=== PATIENT | female | born 1935 | race American Indian/Alaskan Native ===

== ENCOUNTER 2016-11-29 19:50 | Observation (INO) | payer OTHER ==
[2016-11-29 20:17] VITALS: BMI 32.0
[2016-11-29] MEDS ORDERED: ASPIRIN 81 MG CHEWABLE TABLETS PO ONE (20:23)
--- NOTE | 2016-11-29 20:23 | PDOC ---
History of Present Illness - General History Source: Patient, Family Exam Limitations: No Limitations - History of Present Illness Initial Comments: 11/29/16 21:00 The patient is a 81 year old female with a significant past medical history of rheumatoid arthritis, hyperlipidemia s/p stent who presents to the ED s/p altered mental status since yesterday. The patient reports she was in assisted living and went to rehab for back pain. She was discharged yesterday from the rehab center and family reports mental status change since then. The patient knows her name but is unable to describe symptoms. As per family, the patient is not mentally at baseline and has difficulty communicating. The patient also reports urinary frequency and a sudden onset of chest pain radiating to her left arm since earlier today. Patient also reports left forearm fracture for a month. Denies fevers or chills. Denies headache or syncope. Denies dizziness or lightheadedness. Denies shortness of breath or palpitations. Denies any other symptoms. <Tameka Heck - Last Filed: 11/29/16 22:19> - General History Source: Family <Jonah Onofre - Last Filed: 12/02/16 19:15> - General Chief Complaint: Chest Pain Stated Complaint: DISORIENTED/NOT EATING/LT HAND INURY Time Seen by Provider: 11/29/16 20:23 Past History <Tameka Heck - Last Filed: 11/29/16 22:19> - Past Medical History Cardiac Disorders: Yes Diabetes: Yes HTN: Yes Hypercholesterolemia: Yes - Surgical History Cardiac Surgery: Yes (stents) - Psycho/Social/Smoking Cessation Hx Suicidal Ideation: No Smoking History: Never smoked <Jonah Onofre - Last Filed: 12/02/16 19:15> - Past Medical History Allergies/Adverse Reactions: Allergies Allergy/AdvReac Type Severity Reaction Status Date / Time Penicillins Allergy Verified 11/29/16 21:04 Home Medications: Ambulatory Orders Adalimumab [Humira Pen] 40 mg SQ ASDIR 11/29/16 Aspirin [ASA -] 81 mg PO DAILY 11/29/16 Atorvastatin Ca [Lipitor] 80 mg PO HS 11/29/16 Baclofen 10 mg PO DAILY 11/29/16 Bisacodyl [Bisacodyl -] 5 mg PO BID 11/29/16 Clopidogrel Bisulfate [Plavix -] 75 mg PO DAILY 11/29/16 Cyanocobalamin [Vitamin B12 -] 1,000 mcg PO DAILY 11/29/16 Dextran 70/Hypromellose [Artificial Tears] 1 each OP DAILY 11/29/16 Docusate Sodium [Colace -] 200 mg PO DAILY 11/29/16 Folic Acid - 1 mg PO DAILY 11/29/16 Insulin Glargine,Hum.rec.anlog [Lantus Solostar PEN -] 10 units SQ HS 11/29/16 Insulin Lispro [Humalog Kwikpen U-100] 100 unit SQ QID 11/29/16 Lidocaine 5% Patch [Lidoderm -] 1 patch TP DAILY 11/29/16 Magnesium Hydrox 2400MG/30Ml [Milk of Magnesia -] 30 ml PO BID 11/29/16 Melatonin 3 mg PO HS 11/29/16 Metoprolol Succinate [Toprol XL -] 25 mg PO DAILY 11/29/16 Oxycodone HCl 10 mg PO QID PRN 11/29/16 Pantoprazole Sodium [Protonix -] 40 mg PO DAILY 11/29/16 Polyethylene Glycol 3350 [Miralax 119 gm Btl -] 17 gm PO DAILY 11/29/16 Pregabalin [Lyrica -] 75 mg PO TID 11/29/16 Sennosides [Senna] 2 tab PO HS 11/29/16 Simethicone [Gas-X] 125 mg PO QID 11/29/16 Losartan Potassium [Cozaar -] 100 mg PO DAILY tablet 12/01/16 Metoprolol Succinate [Toprol XL -] 25 mg PO BID #60 tab.sr.24h 12/01/16 Miscellaneous Medical Supply [Blood Pressure Cuff] 1 each MC BID #1 each NS 12/17 Review of Systems - Review of Systems Able to Perform ROS?: Yes Comments:: 11/29/16 21:00 CONSTITUTIONAL: No reported: Fever, Chills, Diaphoresis, Generalized Weakness, Malaise, Loss of Appetite HEENT: No reported: Rhinorrhea, Nasal Congestion, Throat Pain, Throat Swelling, Difficulty Swallowing, Mouth Swelling, Ear Pain, Eye Pain, Visual Changes CARDIOVASCULAR: + chest pain No reported: Syncope, Palpitations, Irregular Heart Rate, Lightheadedness, Peripheral Edema RESPIRATORY: No reported: Cough, Shortness of Breath, SOB with Exertion, Orthopnea, Wheezing , Stridor, Hemoptysis GASTROINTESTINAL: No reported: Abdominal pain, Abdominal Distension, Nausea, Vomiting, Diarrhea, Constipation, Melena, Hematochezia GENITOURINARY: + frequency No reported: Dysuria, Urgency, Hesitancy, Flank Pain, Genital Pain MUSCULOSKELETAL: + arm fracture No reported: Myalgia, Arthralgia, Joint Swelling, Back pain, Neck Pain SKIN: No reported: Rash, Itching, Pallor HEMEATOLOGIC/IMMUNOLOGIC: No reported: Easy Bleeding, Easy Bruising, Lymphadenopathy, Frequent infections ENDOCRINE: No reported: Unexplained Weight Gain, Unexplained Weight Loss, Heat Intolerance , Cold Intolerance NEUROLOGIC: + mental status change No reported: Headache, Focal Weakness, Paresthesias, Vertigo, Lightheadedness, Unsteady Gait, Seizure, Incontinence PSYCHIATRIC: No reported: Anxiety, Depression All Other Systems: Reviewed and Negative <Tameka Heck - Last Filed: 11/29/16 22:19> *Physical Exam - Vital Signs Last Vital Signs Temp Pulse Resp BP Pulse Ox 97.9 F 72 18 140/72 96 11/29/16 20:05 11/29/16 20:05 11/29/16 20:05 11/29/16 20:05 11/29/16 20:05 - Physical Exam Comments: 11/29/16 21:14 GENERAL: Well developed, well nourished. Awake and alert. No acute distress. HEENT: Normocephalic, atraumatic. PERRLA, EOMI. No conjunctival pallor. Sclera are non- icteric. Moist mucous membranes. Oropharynx is clear. NECK: Supple. Full ROM. No JVD. Carotid pulses 2+ and symmetric, without bruits. No thyromegaly. No lymphadenopathy. CARDIOVASCULAR: Regular rate and rhythm. No murmurs, rubs, or gallops. Distal pulses are 2+ and symmetric. PULMONARY: No evidence of respiratory distress. Lungs clear to auscultation bilaterally. No wheezing, rales or rhonchi. ABDOMINAL: + distended, tenderness in the right upper quadrant. Soft. No rebound or guarding. No organomegaly. Normoactive bowel sounds. MUSCULOSKELETAL Normal range of motion at all joints. No bony deformities or tenderness. No CVA tenderness. EXTREMITIES: No cyanosis. No clubbing. No edema. No calf tenderness. SKIN: Warm and dry. Normal capillary refill. No rashes. No jaundice. NEUROLOGICAL: + Alert and Oriented x 1, knows name but has difficulty describing symptoms. Cranial nerves 2-12 intact. No deficits to light touch and temperature in face, upper extremities and lower extremities. No motor deficits in the in face, upper extremities and lower extremities. Normoreflexic in the upper and lower extremities. Normal speech. Toes are down-going bilaterally. Gait is normal without ataxia. PSYCHIATRIC: Cooperative. Good eye contact. Appropriate mood and affect. <Tameka Heck - Last Filed: 11/29/16 22:19> - Vital Signs Last Vital Signs Temp Pulse Resp BP Pulse Ox 97.9 F 72 18 140/72 96 11/29/16 20:05 11/29/16 20:05 11/29/16 20:05 11/29/16 20:05 11/29/16 20:05 <Jonah Onofre - Last Filed: 12/02/16 19:15> Heart Score/ECG Review #1 11/29/16 21:06 Reviewed and interpreted by Dr. Onofre: Impression: Normal sinus rhythm at 71 bpm Possible anterior infarct, age undetermined IA interval 166 ms QRS duration 84 ms <Tameka Heck - Last Filed: 11/29/16 22:19> ED Treatment Course - LABORATORY CBC & Chemistry Diagram: 11/29/16 20:37 11/29/16 20:21 - RADIOLOGY Radiograph Interpretation: 11/29/16 22:19 CT/HEAD CT WITHOUT CONTRAST Impression: No CT evidence of acute intracranial pathology. Mild to moderate periventricular and subcortical chronic microvascular ischmic changes. 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 Reported by: Mickey Jaffe <Tameka Heck - Last Filed: 11/29/16 22:19> - LABORATORY CBC & Chemistry Diagram: 12/01/16 06:00 12/01/16 06:00 <Jonah Onofre - Last Filed: 12/02/16 19:15> Medical Decision Making - Medical Decision Making 12/02/16 19:15 Dr. Onofre: The scribe's documentation has been prepared under my direction and personally reviewed by me in its entirery. I confirm that the note above accurately reflects all work, treatment, procedures, and medical decision making performed by me. <Jonah Onofre - Last Filed: 12/02/16 19:15> *DC/Admit/Observation/Transfer - Attestations Scribe Attestion: 11/29/16 21:00 Documentation prepared by Tameka Heck, acting as medical delivery technician for Jonah Onofre MD <Tameka Heck - Last Filed: 11/29/16 22:19> - Discharge Dispostion Admit: Yes <Jonah Onofre - Last Filed: 12/02/16 19:15> Diagnosis at time of Disposition: Change in mental status Qualifiers: Altered mental status type: unspecified Qualified Code(s): R41.82 - Altered mental status, unspecified Chest pain Qualifiers: Chest pain type: other chest pain Qualified Code(s): R07.89 - Other chest pain - Discharge Dispostion Disposition: HOME Condition at time of disposition: Stable - Prescriptions
[2016-11-29 21:12] LABS: BASOPHIL 0.6 % (0-2.0); EOSINOPHIL 5.8 % (0-4.5); MCH 25.8 pg (25.7-33.7); MCHC 31.3 g/dl (32.0-36.0); MEAN CELL VOLUME 82.4 fl (80-96); MEAN PLT VOLUME 9.1 fl (7.5-11.1); NEUTROPHILS 65.6 % (42.8-82.8); PLATELET COUNT 250 K/MM3 (134-434); RDW 19.1 % (11.6-15.6); WHITE BLOOD COUNT 9.2 K/mm3 (4.0-10.0)
[2016-11-29 21:26] LABS: INR 1.02 (0.82-1.09); PROTHROMBIN TIME (PATIENT) 11.2 SEC (9.98-11.88)
[2016-11-30 00:26] LABS: ALBUMIN 3.1 g/dl (3.4-5.0); BILIRUBIN,TOTAL 0.5 mg/dL (0.2-1.0); CALCIUM 8.6 mg/dL (8.5-10.1); CREATININE 1.3 mg/dL (0.55-1.02); TOT PROT 6.8 g/dl (6.4-8.2)
[2016-11-30 01:16] LABS: TROPONIN I < 0.02 ng/ml (0.00-0.05)
[2016-11-30] MEDS ORDERED: INSULIN REGULAR HUMAN 100 UNITS/ML *VIAL SQ ONE (01:51)
[2016-11-30] MEDS ORDERED: SODIUM CHLORIDE 1,000 ML IV SCH ×3 (03:15→18:11)
--- NOTE | 2016-11-30 03:29 | HP ---
CHIEF COMPLAINT: Altered mental status PCP: none HISTORY OF PRESENT ILLNESS: This is an 81 year old female with a past medical history of RA, Hyperlipidemia , CAD s/p stent, DM, HTN who presents with altered mental status. Family reports that when they visited her at the rehab facility on Friday, she was fine, eager to be going home. On when they went to pick her up she was barely communicating with yes and no. They report when they got her home to her new apartment in [facility] she was confused, wheeling back and forth in the hallway, touching the stove as if she didn't know what it was. Family reports she has been fidgety, not eating, not sleeping. On Friday she had called her daughter on the telephone to make sure she had packed her clothing properly. Family very concerned about the sudden change in behavior and apparent mental status. They have not noticed any focal deficits. Pt with no acute complaints on exam. Does not engage in conversation, obeys commands but very reluctantly. Family denies any specific complaints on mothers part. ER course was notable for: (1) WBC 9.2 (2) CT head with no acute changes (3) Recent Travel: none PAST MEDICAL HISTORY: RA Hyperlipidemia CAD s/p stent DM HTN PAST SURGICAL HISTORY: left wrist fracture 1 month ago Social History: Smoking: no Alcohol: no Drugs: no Allergies Penicillins Allergy (Verified 11/29/16 21:04) HOME MEDICATIONS: 3 Medication Instructions Recorded Adalimumab [Humira] 40 mg SQ ASDIR 11/29/16 Aspirin [ASA -] 81 mg PO DAILY 11/29/16 Atorvastatin Ca [Lipitor] 80 mg PO HS 11/29/16 Baclofen 10 mg PO DAILY 11/29/16 Bisacodyl [Dulcolax -] 5 mg PO BID 11/29/16 Clopidogrel Bisulfate [Plavix -] 75 mg PO DAILY 11/29/16 Cyanocobalamin [Vitamin B12 -] 1,000 mcg PO DAILY 11/29/16 Dextran 70/Hypromellose 1 each OP DAILY 11/29/16 [Artificial Tears] Docusate Sodium [Colace -] 200 mg PO DAILY 11/29/16 Folic Acid - 1 mg PO DAILY 11/29/16 Insulin Glargine,Hum.rec.anlog 10 units SQ HS 11/29/16 [Lantus Solostar PEN (NF)] Insulin Lispro [Humalog] 100 unit SQ QID 11/29/16 Lidocaine 5% Patch [Lidoderm Patch 1 patch TP DAILY 11/29/16 -] Losartan/Hydrochlorothiazide 1 tab PO DAILY 11/29/16 [Losartan-Hctz 100-12.5 mg Tab] Magnesium Hydrox 2400MG/30Ml [Milk 30 ml PO BID 11/29/16 of Magnesia -] Melatonin 3 mg PO HS 11/29/16 Methotrexate Sodium [Methotrexate] 17.5 mg PO WEEKLY 11/29/16 Metoprolol Succinate [Toprol Xl -] 25 mg PO DAILY 11/29/16 Oxycodone HCl 10 mg PO QID PRN 11/29/16 Pantoprazole Sodium [Protonix -] 40 mg PO DAILY 11/29/16 Polyethylene Glycol 3350 [Miralax 17 gm PO DAILY 11/29/16 (For Daily Use) -] Pregabalin [Lyrica -] 75 mg PO TID 11/29/16 Sennosides [Senna] 2 tab PO HS 11/29/16 Simethicone [Gas-X] 125 mg PO QID 11/29/16 REVIEW OF SYSTEMS CONSTITUTIONAL: Present: loss of appetite Absent: fever, chills, diaphoresis, generalized weakness, malaise, weight change HEENT: Absent: rhinorrhea, nasal congestion, throat pain, throat swelling, difficulty swallowing, mouth swelling, ear pain, eye pain, visual changes CARDIOVASCULAR: Absent: chest pain, syncope, palpitations, irregular heart rate, lightheadedness , peripheral edema RESPIRATORY: Absent: cough, shortness of breath, dyspnea with exertion, orthopnea, wheezing, stridor, hemoptysis GASTROINTESTINAL: Absent: abdominal pain, abdominal distension, nausea, vomiting, diarrhea, constipation, melena, hematochezia GENITOURINARY: Absent: dysuria, frequency, urgency, hesitancy, hematuria, flank pain, genital pain MUSCULOSKELETAL: Absent: myalgia, arthralgia, joint swelling, back pain, neck pain SKIN: Absent: rash, itching, pallor HEMATOLOGIC/IMMUNOLOGIC: Absent: easy bleeding, easy bruising, lymphadenopathy, frequent infections ENDOCRINE: Absent: unexplained weight gain, unexplained weight loss, heat intolerance, cold intolerance NEUROLOGIC: Present: mental status changes Absent: headache, focal weakness or paresthesias, dizziness, unsteady gait, seizure, bladder or bowel incontinence PSYCHIATRIC: Absent: anxiety, depression, suicidal or homicidal ideation, hallucinations. PHYSICAL EXAMINATION Vital Signs - 24 hr 3 11/29/16 20:05 Temperature 97.9 F Pulse Rate 72 Respiratory 18 Rate Blood Pressure 140/72 O2 Sat by Pulse 96 Oximetry (%) GENERAL: Awake, alert, and oriented to person only. Whe asked where she was, she answered, "I can't really say." No acute distress. HEAD: Normal with no signs of trauma. EYES: Pupils equal, round and reactive to light, extraocular movements intact, sclera anicteric, conjunctiva clear. No lid lag. EARS, NOSE, THROAT: Ears normal, nares patent, oropharynx clear without exudates. Moist mucous membranes. NECK: Normal range of motion, supple without lymphadenopathy, JVD, or masses. LUNGS: Breath sounds equal, clear to auscultation bilaterally. No wheezes, and no crackles. No accessory muscle use. HEART: Regular rate and rhythm, normal S1 and S2 without murmur, rub or gallop. ABDOMEN: Soft, tender on deep palpation RUQ and RLQ, softly distended, normoactive bowel sounds, no guarding, no rebound, no masses. No hepatomegaly or splenomegaly. MUSCULOSKELETAL: Normal range of motion at all joints. No bony deformities or tenderness. No CVA tenderness. UPPER EXTREMITIES: 2+ pulses, warm, well-perfused. No cyanosis. No clubbing. Cap refill <2 seconds. No peripheral edema. B/L strength 4+/5 for hand alignment specialist and arm raise LOWER EXTREMITIES: 2+ pulses, warm, well-perfused. No calf tenderness. No peripheral edema. B/L strength 4+/5 for leg raise and dorsi/plantar flexion of foot NEUROLOGICAL: Cranial nerves II-XII intact. Normal speech. Gait not observed. Reluctantly follows commands. PSYCHIATRIC: Cooperative. Poor eye contact. difficult to engage SKIN: Warm, dry, normal turgor, no rashes or lesions noted. Laboratory Results - last 24 hr 3 11/29/16 11/29/16 11/29/16 11:22 11:22 20:21 WBC RBC Hgb Hct MCV MCHC RDW Plt Count MPV Neutrophils % Lymphocytes % Monocytes % Eosinophils % Basophils % INR 1.02 Sodium 136 Potassium 4.2 Chloride 97 L Carbon Dioxide 26 Anion Gap 13 BUN 33 H Creatinine 1.3 H Creat Clearance w eGFR 39.31 Random Glucose 338 H* Calcium 8.6 Magnesium Total Bilirubin 0.5 AST 18 ALT 23 Alkaline Phosphatase 218 H Creatine Kinase 83 Troponin I < 0.02 B-Natriuretic Peptide 876.08 H Total Protein 6.8 Albumin 3.1 L 3 11/29/16 11/29/16 20:21 20:37 WBC 9.2 RBC 4.57 Hgb 11.8 Hct 37.7 MCV 82.4 MCHC 31.3 L RDW 19.1 H Plt Count 250 MPV 9.1 Neutrophils % 65.6 Lymphocytes % 22.8 Monocytes % 5.2 Eosinophils % 5.8 H Basophils % 0.6 INR Sodium Cancelled Potassium Cancelled Chloride Cancelled Carbon Dioxide Cancelled Anion Gap Cancelled BUN Cancelled Creatinine Cancelled Creat Clearance w eGFR Cancelled Random Glucose Cancelled Calcium Cancelled Magnesium Cancelled Total Bilirubin Cancelled AST Cancelled ALT Cancelled Alkaline Phosphatase Cancelled Creatine Kinase Cancelled Troponin I Cancelled B-Natriuretic Peptide Total Protein Cancelled Albumin Cancelled CT/HEAD CT WITHOUT CONTRAST Impression: No CT evidence of acute intracranial pathology. Mild to moderate periventricular and subcortical chronic microvascular ischmic changes. 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 Reported by: Mickey Jaffe CXR appears congested, awaiting final read ASSESSMENT/PLAN: 81yF with a past medical history of RA, Hyperlipidemia, CAD s/p stent, DM, HTN who presents with altered mental status since . She is being admitted for further management of this emergent condition. Altered mental status - CT head with probable small chronic right posterior frontal cortical infarct, family denies any PMH of CVA - IF mental status does not improve, would obtain MRI and neuro consult - u/a c/s ordered via straight cath THOR - BUN/Cr 33/1.3, unsure of baseline, will give IV hydration NS@150cc/hr x 1 liter. DM - given novolog in ER for elevated sugar - on lantus 10 u QPM at home, will convert to formulary levemir - monitor FSBS TIDAC and HS with novolog sliding scale CAD s/p stent/HLD - cont home medications: toprol, losartan/HCTZ, plavix, ASA hyperlipidemia - cont home lipitor RA/chronic pain - cont home lyrica, hold oxycodone for now unless c/o pain - cont bowel regimen as family reports she was taking "a lot of opioids" - methotraxate q friday - humira q 2 weeks, next due 12/03 DVT PPX - heparin 5000u TID FEN - NS @150cc/hr x 1 liter then reassess - Repeat BMP in am - low sodium/diabetic diet as tolerated Dispo: Pt currently requires inpatient care. Full code. Visit type - Emergency Visit Emergency Visit: Yes ED Registration Date: 11/29/16 Care time: The patient presented to the Emergency Department on the above date and was hospitalized for further evaluation of their emergent condition. - New Patient This patient is new to me today: Yes Date on this admission: 11/30/16 - Critical Care Critical Care patient: No
[2016-11-30] MEDS ORDERED: INSULIN REGULAR HUMAN 100 UNITS/ML *VIAL ONE (03:30)
[2016-11-30] MEDS: HEPARIN NA (PORCINE) 5,000 UNITS/ML 1ML VIAL SQ SCH ×3 (05:59→22:16)
[2016-11-30] MEDS: PREGABALIN 75 MG CAPSULE PO SCH ×3 (05:59→22:17)
[2016-11-30] MEDS: INSULIN SLIDING SCALE (NOVOLOG) 1 VIAL SQ SCH ×4 (06:00→22:25)
[2016-11-30 08:45] LABS: BASOPHIL 0.6 % (0-2.0); EOSINOPHIL 5.1 % (0-4.5); MCH 26.6 pg (25.7-33.7); MCHC 32.5 g/dl (32.0-36.0); MEAN CELL VOLUME 81.9 fl (80-96); MEAN PLT VOLUME 8.9 fl (7.5-11.1); NEUTROPHILS 60.6 % (42.8-82.8); PLATELET COUNT 239 K/MM3 (134-434); RDW 18.8 % (11.6-15.6); WHITE BLOOD COUNT 9.1 K/mm3 (4.0-10.0)
[2016-11-30 09:07] LABS: CALCIUM 9.4 mg/dL (8.5-10.1); CREATININE 1.1 mg/dL (0.55-1.02)
[2016-11-30] MEDS ORDERED: PATIENT'S OWN MEDICATION (NON-FORMULARY) (Losartan/Hydrochlorothiazide [Losartan-Hctz 100- PO SCH (10:00)
[2016-11-30] MEDS ORDERED: METOPROLOL SUCCINATE 25 MG TAB.SR.24H (FP) PO SCH (10:00)
[2016-11-30] MEDS ORDERED: ARTIFICIAL TEARS (POLYVINYL ALCOHOL 1.4%) OPTH DROPS OU PRN (10:00)
[2016-11-30] MEDS: FOLIC ACID 1 MG TABLET (FP) PO SCH (10:21)
[2016-11-30] MEDS: PANTOPRAZOLE 40 MG TABLET (FP) PO SCH (10:21)
[2016-11-30] MEDS: LOSARTAN POTASSIUM 50 MG TABLET (FP) PO SCH (10:21)
[2016-11-30] MEDS: DOCUSATE SODIUM 100 MG CAPSULE (FP) PO SCH (10:21)
[2016-11-30] MEDS: HYDROCHLOROTHIAZIDE 12.5 MG CAPSULE (FP) PO SCH (10:21)
[2016-11-30] MEDS: CLOPIDOGREL BISULFATE 75 MG TABLET (FP) PO SCH (10:21)
[2016-11-30] MEDS: ASPIRIN 81 MG CHEWABLE TABLETS PO SCH (10:21)
[2016-11-30] MEDS: MAGNESIUM HYDROX 2400MG/30ML ORAL SUSPENSION 30 ML CUP PO SCH ×2 (10:26→22:17)
[2016-11-30] MEDS: BISACODYL 5 MG TABLET.DR (FP) PO SCH ×2 (10:26→22:16)
[2016-11-30] MEDS: POLYETHYLENE GLYCOL 3350 119 GM BTL PO SCH (10:26)
[2016-11-30] MEDS ORDERED: SIMETHICONE 80 MG TAB.CHEW (FP) PO PRN (11:00)
[2016-11-30 11:54] LABS: URINE APPEARANCE CLEAR; URINE BILIRUBIN NEGATIVE (NEGATIVE); URINE BLOOD NEGATIVE (NEGATIVE); URINE COLOR STRAW; URINE GLUCOSE (UA) NEGATIVE (NEGATIVE); URINE KETONE NEGATIVE (NEGATIVE); URINE NITRITE NEGATIVE (NEGATIVE); URINE UROBILINOGEN NEGATIVE E.U./dl (0.2-1.0)
[2016-11-30 12:01] LABS: URINE LEUK ESTERASE 1+ (NEGATIVE); URINE PROTEIN 2+ (NEGATIVE)
[2016-11-30 12:04] LABS: URINE WBC 7 /hpf (3-5)
--- NOTE | 2016-11-30 13:52 | EKG ---
Test Reason : Blood Pressure : / mmHG Vent. Rate : 071 BPM Atrial Rate : 071 BPM P-R Int : 166 ms QRS Dur : 084 ms QT Int : 368 ms P-R-T Axes : 066 -18 054 degrees QTc Int : 399 ms NORMAL SINUS RHYTHM ELECTRONIC ATRIAL PACEMAKER POSSIBLE ANTERIOR INFARCT , AGE UNDETERMINED ABNORMAL ECG NO PREVIOUS ECGS AVAILABLE Confirmed by MD MELIA, LAVELLE ([id number]) on 11/30/2016 1:51:37 PM Referred By: Overread By: LAVELLE CÁRDENAS MD
--- NOTE | 2016-11-30 14:44 | CONSULT ---
Consult Consult Specialty:: NEUROLOGY Reason for Consultation:: altered mental status - History of Present Illness History of Present Illness: 81 year old female with a past medical history of RA , pain ( on opioids treatment), Hyperlipidemia, CAD s/p stent, DM, HTN was admitted with altered mental status. Family reports that when they visited her at the rehab facility on Friday, she was fine, eager to be going home. On when they went to pick her up she was barely communicating with yes and no. They report when they got her home to her new apartment in [facility] she was confused, wheeling back and forth in the hallway, touching the stove as if she didn't know what it was. Family reports she has been fidgety, not eating, not sleeping. On Friday she had called her daughter on the telephone to make sure she had packed her clothing properly. Family very concerned about the sudden change in behavior and apparent mental status. They have not noticed any focal deficits. Does not engage in conversation, obeys commands but very reluctantly. - History Source History Provided By: Patient, Medical Record Limitations to Obtaining History: Poor Historian - Smoking History Smoking history: Never smoked Home Medications - Allergies Allergies/Adverse Reactions: Allergies Allergy/AdvReac Type Severity Reaction Status Date / Time Penicillins Allergy Verified 11/29/16 21:04 - Home Medications Home Medications: Ambulatory Orders Adalimumab [Humira] 40 mg SQ ASDIR 11/29/16 Aspirin [ASA -] 81 mg PO DAILY 11/29/16 Atorvastatin Ca [Lipitor] 80 mg PO HS 11/29/16 Baclofen 10 mg PO DAILY 11/29/16 Bisacodyl [Dulcolax -] 5 mg PO BID 11/29/16 Clopidogrel Bisulfate [Plavix -] 75 mg PO DAILY 11/29/16 Cyanocobalamin [Vitamin B12 -] 1,000 mcg PO DAILY 11/29/16 Dextran 70/Hypromellose [Artificial Tears] 1 each OP DAILY 11/29/16 Docusate Sodium [Colace -] 200 mg PO DAILY 11/29/16 Folic Acid - 1 mg PO DAILY 11/29/16 Insulin Glargine,Hum.rec.anlog [Lantus Solostar PEN (NF)] 10 units SQ HS Insulin Lispro [Humalog] 100 unit SQ QID 11/29/16 Lidocaine 5% Patch [Lidoderm Patch -] 1 patch TP DAILY 11/29/16 Losartan/Hydrochlorothiazide [Losartan-Hctz 100-12.5 mg Tab] 1 tab PO DAILY Magnesium Hydrox 2400MG/30Ml [Milk of Magnesia -] 30 ml PO BID 11/29/16 Melatonin 3 mg PO HS 11/29/16 Methotrexate Sodium [Methotrexate] 17.5 mg PO WEEKLY 11/29/16 Metoprolol Succinate [Toprol Xl -] 25 mg PO DAILY 11/29/16 Oxycodone HCl 10 mg PO QID PRN 11/29/16 Pantoprazole Sodium [Protonix -] 40 mg PO DAILY 11/29/16 Polyethylene Glycol 3350 [Miralax (For Daily Use) -] 17 gm PO DAILY 11/29/16 Pregabalin [Lyrica -] 75 mg PO TID 11/29/16 Sennosides [Senna] 2 tab PO HS 11/29/16 Simethicone [Gas-X] 125 mg PO QID 11/29/16 Physical Exam-Neuro Vital Signs: Vital Signs Temperature 97.6 F 11/30/16 14:00 Pulse Rate 91 H 11/30/16 14:00 Respiratory Rate 18 11/30/16 14:00 Blood Pressure 183/90 11/30/16 14:00 O2 Sat by Pulse Oximetry (%) 96 11/30/16 11:26 Constitutional: Yes: Well Nourished, No Distress, Calm Neck: Yes: Supple, Trachea Midline Cardiovascular: Yes: Regular Rate and Rhythm, S1, S2 Respiratory: Yes: Regular, CTA Bilaterally Gastrointestinal: Yes: Normal Bowel Sounds, Soft Renal/: Yes: WNL Musculoskeletal: Yes: WNL Edema: No Psychiatric: Yes: WNL, Alert, Oriented (to person only) Labs: CBC, BMP 11/30/16 08:10 11/30/16 08:10 INR, PTT INR 1.02 (0.82-1.09) 11/29/16 20:21 - Neuro Exam Level Of Consciousness: Yes: Oriented to Person Eyes: Yes: PERRLA Speech: Other (repetition is intact but there is severe decreased in fluency, follows intermittent one step commands.) Dominant Hand: Right Cranial Nerves II-XII Intact: Yes Gag: Present DTR's: 1+ Left Bicep, 1+ Right Bicep, 1+ Left Tricep, 1+ Right Tricep, 1+ Left Brachioradialis, 1+ Right Brachioradialis, 1+ Left Achilles, 1+ Right Achilles Babinski: Absent Response to light touch: Normal Response to pain prick: Normal Response to temperature: Normal Response to vibration: Normal Coordination: Normal: Finger to Nose, Heel to Damon Motor Strength: 5/5: Left Arm, Right Arm, Left Leg, Right Leg Gait: Deferred Problem List - Problems (1) Change in mental status Code(s): R41.82 - ALTERED MENTAL STATUS, UNSPECIFIED Qualifiers: Altered mental status type: unspecified Qualified Code(s): R41.82 - Altered mental status, unspecified (2) Aphasia Code(s): R47.01 - APHASIA (3) Acute metabolic encephalopathy Code(s): G93.41 - METABOLIC ENCEPHALOPATHY (4) Confusion Code(s): R41.0 - DISORIENTATION, UNSPECIFIED (5) Confusion associated with infection Code(s): R41.0 - DISORIENTATION, UNSPECIFIED B99.9 - UNSPECIFIED INFECTIOUS DISEASE Assessment/Plan 81 year old female with a past medical history of RA , pain ( on opioids treatment), Hyperlipidemia, CAD s/p stent, DM, HTN was admitted with altered mental status. Family reports that when they visited her at the rehab facility on Friday, she was fine, eager to be going home. On when they went to pick her up she was barely communicating with yes and no. They report when they got her home to her new apartment in [facility] she was confused, wheeling back and forth in the hallway, touching the stove as if she didn't know what it was. Family reports she has been fidgety, not eating, not sleeping. On Friday she had called her daughter on the telephone to make sure she had packed her clothing properly. Family very concerned about the sudden change in behavior and apparent mental status. They have not noticed any focal deficits. Neurological exam: no weakness but decreased fluency and confused. Repetition intract. CT head : no acute ICP She has hyperglycemia. Impression: aphasia due to stroke, confusions delirium versus dementia, possible partial seizures. metabolic encephalopathy Plan: - if there is no pmh. of dementia- to do MRI brain to rule out stroke acute ischemic with aphasia. - DVT prophylaxis. - Urine culture. - to do EEG to rule seizures. - correct electrolytes, correct glucose. Thank you for this consult.
[2016-11-30] MEDS: CYANOCOBALAMIN 1,000 MCG TABLET (FP) PO SCH (15:06)
--- NOTE | 2016-11-30 17:20 | PN ---
Physical Exam: SUBJECTIVE: Patient seen and examined, daughter at the bedside and provided most of the history. Patient awake, alert, slow to answer questions. States her names, says she is at [facility], cannot recall year. She denies chest pain when asked. She is in no acute distress. OBJECTIVE: Vital Signs Period Temp Pulse Resp BP Sys/Nava Pulse Ox Last 24 Hr 97.6 F-98.6 F 80-96 14-20 156-183/76-90 96-97 GENERAL: The patient is awake, alert to self, confused. HEAD: Normal with no signs of trauma. facial symmetry, EYES: PERRL, extraocular movements intact, sclera anicteric, conjunctiva clear. No ptosis. ENT: oropharynx clear without exudates, moist mucous membranes. NECK: Trachea midline, full range of motion, supple. LUNGS: Breath sounds equal, clear to auscultation bilaterally, no wheezes, no crackles, no accessory muscle use. HEART: Sinus rhythm, sinus tachycardia ABDOMEN: Soft, nontender, nondistended, normoactive bowel sounds EXTREMITIES: 2+ pulses, warm, well-perfused, no edema. bilateral lower ext equal strength, left arm cast, right arm 5/5 NEUROLOGICAL: Delayed speech, confused, gait not observed. PSYCH: confused. SKIN: left arm hard cast from wrist to forearm, able to move left fingers freely , denies pain. Arm cast for apx 1 month. Laboratory Results - last 24 hr 11/30/16 11/30/16 11/30/16 06:00 08:10 08:10 WBC 9.1 RBC 4.13 Hgb 11.0 Hct 33.8 MCV 81.9 MCHC 32.5 RDW 18.8 H Plt Count 239 MPV 8.9 Neutrophils % 60.6 Lymphocytes % 28.1 D Monocytes % 5.6 Eosinophils % 5.1 H Basophils % 0.6 Sodium 139 Potassium 3.8 Chloride 100 Carbon Dioxide 27 Anion Gap 12 BUN 27 H Creatinine 1.1 H POC Glucometer 195 Random Glucose 96 D Calcium 9.4 Triglycerides 50 Cholesterol 117 Total LDL Cholesterol 42 HDL Cholesterol 76 H Urine Color Urine Appearance Urine pH Ur Specific [place] Urine Protein Urine Glucose (UA) Urine Ketones Urine Blood Urine Nitrite Urine Bilirubin Urine Urobilinogen Ur Leukocyte Esterase Urine RBC Urine WBC 11/30/16 11/30/16 10:15 12:50 WBC RBC Hgb Hct MCV MCHC RDW Plt Count MPV Neutrophils % Lymphocytes % Monocytes % Eosinophils % Basophils % Sodium Potassium Chloride Carbon Dioxide Anion Gap BUN Creatinine POC Glucometer 171 Random Glucose Calcium Triglycerides Cholesterol Total LDL Cholesterol HDL Cholesterol Urine Color Straw Urine Appearance Clear Urine pH 7.0 Ur Specific [place] 1.008 Urine Protein 2+ H Urine Glucose (UA) Negative Urine Ketones Negative Urine Blood Negative Urine Nitrite Negative Urine Bilirubin Negative Urine Urobilinogen Negative Ur Leukocyte Esterase 1+ H Urine RBC None Urine WBC 7 Active Medications Generic Name Dose Route Start Last Admin Trade Name Freq PRN Reason Stop Dose Admin Artificial Tears 1 drop 11/30/16 10:00 Artificial Tears OU Q12H PRN Aspirin 81 mg 11/30/16 10:00 11/30/16 10:21 Asa - PO 81 mg DAILY [facility] Administration Atorvastatin Calcium 80 mg 11/30/16 22:00 Lipitor - PO HS [facility] Bisacodyl 5 mg 11/30/16 10:00 11/30/16 10:26 Dulcolax - PO Not Given BID [facility] Clopidogrel Bisulfate 75 mg 11/30/16 10:00 11/30/16 10:21 Plavix - PO 75 mg DAILY [facility] Administration Cyanocobalamin 1,000 mcg 11/30/16 10:00 11/30/16 15:06 Vitamin B12 - PO Not Given DAILY [facility] Docusate Sodium 200 mg 11/30/16 10:00 11/30/16 10:21 Colace - PO 200 mg DAILY [facility] Administration Folic Acid 1 mg 11/30/16 10:00 11/30/16 10:21 Folic Acid - PO 1 mg DAILY [facility] Administration Heparin Sodium (Porcine) 5,000 unit 11/30/16 06:00 11/30/16 15:06 Heparin - SQ 5,000 unit TID [facility] Administration Hydrochlorothiazide 12.5 mg 11/30/16 10:00 11/30/16 10:21 Hctz - PO 12.5 mg DAILY [facility] Administration Sodium Chloride 1,000 mls @ 100 mls/hr 11/30/16 10:15 11/30/16 10:15 Normal Saline - IV 100 mls/hr ASDIR [facility] Administration Insulin Aspart 1 vial 11/30/16 07:00 11/30/16 12:52 Novolog Vial Sliding Scale - SQ 2 units ACHS [facility] Administration Protocol Insulin Detemir 10 units 11/30/16 22:00 Levemir Vial SQ HS KEIRA Losartan Potassium 100 mg 11/30/16 10:00 11/30/16 10:21 Cozaar - PO 100 mg DAILY KEIRA Administration Magnesium Hydroxide 30 ml 11/30/16 10:00 11/30/16 10:26 Milk Of Magnesia - PO Not Given BID KEIRA Metoprolol Succinate 25 mg 11/30/16 10:00 11/30/16 10:22 Toprol Xl - PO 25 mg DAILY KEIRA Administration Pantoprazole Sodium 40 mg 11/30/16 10:00 11/30/16 10:21 Protonix - PO 40 mg DAILY KEIRA Administration Polyethylene Glycol 17 gm 11/30/16 10:00 11/30/16 10:26 Miralax (For Daily Use) - PO Not Given DAILY KEIRA Pregabalin 75 mg 11/30/16 06:00 11/30/16 15:06 Lyrica - PO 75 mg TID KEIRA Administration Senna 2 tab 11/30/16 22:00 Senna - PO HS KEIRA Simethicone 80 mg 11/30/16 11:00 11/30/16 15:06 Mylicon - PO 80 mg Q6H PRN Administration ASSESSMENT/PLAN: Patient is an 81 year old female with a past medical history of rheumatoid arthritis, hyperlipidemia, CAD with stents, diabetes mellitus and hypertension who was brought in by her family on 11/30/2016 for altered mental status. Daughter reports that when she visited her mother at the rehab facility on Friday, she appeared at her baseline mentally. She states her mother was alert and oriented and in no acute distres. On the following day, she noted her mother to be barely communicating, more confused. Later at home, she noted her mother to be more confused, touching the stove as if she did not know what it was, was more restless, not eating, poor sleep. Her daughter is very concerned about her mother and is wondering if her mother was given too much pain medication at the rehab facility. On my exam, it was noted that patient does not freely engage in conversation, looks confused and is able to state who she is but is reluctant to do so. Neurology: Alerted Mental Status - acute Assessment/Plan: Differentials include TIA vs. worsening dementia, seizures or infectious process. Patient still confused overnight and this morning. CT scan shows mild to moderate tori. and subcort. chronic microvascular ischemic changes. 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 MRI of the brain ordered. Neuro following, EEG to rule out seizures ordered as per Neuro recommendations On methotrexate every Friday for RA, Methotrexate adverse reactions include seizures, and opportunistic infections Blood cultures and urine cultures sent, pt is afebrile, non toxic appearing, monitor closely for worsening mental status, EEG ordered Checking urine tox as pt is on oxycodone at home. Hold Narcotics, will check ammonia level Ortho: Left forearm fracture s/p fall at home Assessment/Plan: left forearm fracture for a month, hard cast, able to move left fingers freely, denies pain. Cast scheduled to be removed this week. Cardiology: Chest Pain - acute Assessment/Plan: Admitted with chest pain, denies any chest pain or shortness of breath. First troponin negative, second troponin ordered. Hypertension - chronic Assessment/Plan: On home medications of HCTZ 12.5 daily, Toprol 25mg daily ( changed to Toprol 25mg BID secondary to HTN). Monitor BPs. Telemonitoring. Hyperlipidemia - chonic Assessment/Plan: cont home lipitor CAD s/p stent/HLD - chronic Assessment/Plan: On home medications of Toprol, HCTZ, Plavix and ASA Endocrine: Diabetes Mellitus - chronic Assessment/Plan: Monitor BGMs closely and may need tighter control of insulin therapy last BGM in the 90s, continue current sliding scale and monitor F.E.N. Fluids: NS @ 100cc for dehydration Electrolytes: within normal limits, monitor Nutrition:Diabetic diet, not signs of aspiration Prophylaxis: heparin TID GI: Protonix, colace, senna Visit type - Emergency Visit Emergency Visit: Yes ED Registration Date: 11/30/16 Care time: The patient presented to the Emergency Department on the above date and was hospitalized for further evaluation of their emergent condition. - New Patient This patient is new to me today: Yes Date on this admission: 12/01/16 - Critical Care Critical Care patient: No - Discharge Referral Referred to [facility] Med P.C.: Yes
[2016-11-30] MEDS ORDERED: METOPROLOL SUCCINATE 25 MG TAB.SR.24H (FP) PO ONE (18:10)
[2016-11-30] MEDS ORDERED: SENNOSIDES 8.6MG TABLET (FP) PO SCH (22:00)
[2016-11-30] MEDS ORDERED: ATORVASTATIN CA 80 MG TABLET (FP) PO SCH (22:00)
[2016-11-30] MEDS ORDERED: INSULIN DETEMIR 100 UNITS/ML MDV SQ SCH ×2 (22:00)
[2016-11-30] MEDS: METOPROLOL SUCCINATE 25 MG TAB.SR.24H (FP) PO SCH (22:17)
[2016-12-01] MEDS: HEPARIN NA (PORCINE) 5,000 UNITS/ML 1ML VIAL SQ SCH ×2 (06:50→13:58)
[2016-12-01] MEDS: PREGABALIN 75 MG CAPSULE PO SCH ×2 (06:50→13:58)
[2016-12-01] MEDS: INSULIN SLIDING SCALE (NOVOLOG) 1 VIAL SQ SCH ×3 (06:50→17:17)
[2016-12-01 07:21] LABS: BASOPHIL 0.4 % (0-2.0); EOSINOPHIL 6.1 % (0-4.5); MCH 26.7 pg (25.7-33.7); MCHC 32.4 g/dl (32.0-36.0); MEAN CELL VOLUME 82.4 fl (80-96); MEAN PLT VOLUME 8.9 fl (7.5-11.1); NEUTROPHILS 56.6 % (42.8-82.8); PLATELET COUNT 198 K/MM3 (134-434); RDW 19.2 % (11.6-15.6); WHITE BLOOD COUNT 8.1 K/mm3 (4.0-10.0)
[2016-12-01 07:41] LABS: ALBUMIN 2.8 g/dl (3.4-5.0); CALCIUM 8.2 mg/dL (8.5-10.1); CREATININE 1.2 mg/dL (0.55-1.02); MAGNESIUM 1.9 mg/dL (1.8-2.4)
[2016-12-01 07:45] LABS: BILIRUBIN,TOTAL 0.5 mg/dL (0.2-1.0); TOT PROT 6.4 g/dl (6.4-8.2)
[2016-12-01] MEDS ORDERED: SODIUM CHLORIDE 1,000 ML IV SCH (07:55)
[2016-12-01] MEDS: BISACODYL 5 MG TABLET.DR (FP) PO SCH (09:50)
[2016-12-01] MEDS: ASPIRIN 81 MG CHEWABLE TABLETS PO SCH (09:51)
[2016-12-01] MEDS: HYDROCHLOROTHIAZIDE 12.5 MG CAPSULE (FP) PO SCH (09:51)
[2016-12-01] MEDS: CYANOCOBALAMIN 1,000 MCG TABLET (FP) PO SCH (09:51)
[2016-12-01] MEDS: FOLIC ACID 1 MG TABLET (FP) PO SCH (09:51)
[2016-12-01] MEDS: PANTOPRAZOLE 40 MG TABLET (FP) PO SCH (09:51)
[2016-12-01] MEDS: CLOPIDOGREL BISULFATE 75 MG TABLET (FP) PO SCH (09:51)
[2016-12-01] MEDS: METOPROLOL SUCCINATE 25 MG TAB.SR.24H (FP) PO SCH (09:51)
[2016-12-01] MEDS: DOCUSATE SODIUM 100 MG CAPSULE (FP) PO SCH (09:51)
[2016-12-01] MEDS: LOSARTAN POTASSIUM 50 MG TABLET (FP) PO SCH (09:51)
[2016-12-01] MEDS: MAGNESIUM HYDROX 2400MG/30ML ORAL SUSPENSION 30 ML CUP PO SCH (09:52)
[2016-12-01] MEDS: POLYETHYLENE GLYCOL 3350 119 GM BTL PO SCH (09:52)
--- NOTE | 2016-12-01 11:51 | DS ---
Physical Exam: SUBJECTIVE: Patient seen and examined. Patient was sitting up in the chair, in no acute distress. Today she more alert and answering questions appropriately. Alert and oriented x 3. States she feels better. As per her family, patient is back to her baseline mentally. OBJECTIVE: Vital Signs Period Temp Pulse Resp BP Sys/Nava Pulse Ox Last 24 Hr 97.2 F-98.8 F 57-91 18-20 115-183/60-97 97-97 PHYSICAL EXAM GENERAL: The patient is awake, alert, and fully oriented, in no acute distress - much improved since yesterday. Back to her baseline mentally as per her family. HEAD: Normal with no signs of trauma, no aphagia, no confusion, back to baseline , facial symmetry EYES: PERRL, extraocular movements intact, sclera anicteric, conjunctiva clear. ENT: Ears normal, nares patent, oropharynx clear without exudates, moist mucous membranes. NECK: Trachea midline, full range of motion, supple. LUNGS: Breath sounds equal, clear to auscultation bilaterally, no wheezes HEART: Regular rate and rhythm ABDOMEN: Soft, nontender, nondistended, normoactive bowel sounds, no guarding EXTREMITIES: 2+ pulses, warm, well-perfused, no edema, equal strength of legs, right arm 5/5, left arm cast, minimal movement, fingers warm. NEUROLOGICAL: Normal speech, uses rolling walker PSYCH: Normal mood, normal affect - answers questions appropriately SKIN: Warm, dry, normal turgor, no rashes or lesions noted. LABS Laboratory Results - last 24 hr 11/30/16 11/30/16 11/30/16 08:10 10:15 12:50 WBC RBC Hgb Hct MCV MCHC RDW Plt Count MPV Neutrophils % Lymphocytes % Monocytes % Eosinophils % Basophils % Sodium Potassium Chloride Carbon Dioxide Anion Gap BUN Creatinine Creat Clearance w eGFR POC Glucometer 171 Random Glucose Calcium Magnesium Total Bilirubin AST ALT Alkaline Phosphatase Ammonia Troponin I B-Natriuretic Peptide Total Protein Albumin Triglycerides 50 Cholesterol 117 Total LDL Cholesterol 42 HDL Cholesterol 76 H Urine Color Straw Urine Appearance Clear Urine pH 7.0 Ur Specific [place] 1.008 Urine Protein 2+ H Urine Glucose (UA) Negative Urine Ketones Negative Urine Blood Negative Urine Nitrite Negative Urine Bilirubin Negative Urine Urobilinogen Negative Ur Leukocyte Esterase 1+ H Urine RBC None Urine WBC 7 11/30/16 11/30/16 11/30/16 18:00 18:04 18:30 WBC RBC Hgb Hct MCV MCHC RDW Plt Count MPV Neutrophils % Lymphocytes % Monocytes % Eosinophils % Basophils % Sodium Potassium Chloride Carbon Dioxide Anion Gap BUN Creatinine Creat Clearance w eGFR POC Glucometer 165 Random Glucose Calcium Magnesium Total Bilirubin AST ALT Alkaline Phosphatase Ammonia 16.10 Troponin I < 0.02 B-Natriuretic Peptide Total Protein Albumin Triglycerides Cholesterol Total LDL Cholesterol HDL Cholesterol Urine Color Urine Appearance Urine pH Ur Specific [place] Urine Protein Urine Glucose (UA) Urine Ketones Urine Blood Urine Nitrite Urine Bilirubin Urine Urobilinogen Ur Leukocyte Esterase Urine RBC Urine WBC 11/30/16 12/01/16 12/01/16 22:21 06:00 06:00 WBC 8.1 RBC 3.87 Hgb 10.3 L Hct 31.9 L MCV 82.4 MCHC 32.4 RDW 19.2 H Plt Count 198 MPV 8.9 Neutrophils % 56.6 Lymphocytes % 28.3 Monocytes % 8.6 Eosinophils % 6.1 H Basophils % 0.4 Sodium 139 Potassium 3.5 Chloride 107 Carbon Dioxide 25 Anion Gap 7 L BUN 33 H D Creatinine 1.2 H Creat Clearance w eGFR 43.12 POC Glucometer 204 Random Glucose 60 L D Calcium 8.2 L Magnesium 1.9 Total Bilirubin 0.5 AST 14 L D ALT 21 Alkaline Phosphatase 187 H Ammonia Troponin I B-Natriuretic Peptide 477.08 H Total Protein 6.4 Albumin 2.8 L Triglycerides Cholesterol Total LDL Cholesterol HDL Cholesterol Urine Color Urine Appearance Urine pH Ur Specific [place] Urine Protein Urine Glucose (UA) Urine Ketones Urine Blood Urine Nitrite Urine Bilirubin Urine Urobilinogen Ur Leukocyte Esterase Urine RBC Urine WBC 12/01/16 12/01/16 06:43 09:00 WBC RBC Hgb Hct MCV MCHC RDW Plt Count MPV Neutrophils % Lymphocytes % Monocytes % Eosinophils % Basophils % Sodium Potassium Chloride Carbon Dioxide Anion Gap BUN Creatinine Creat Clearance w eGFR POC Glucometer 71 Random Glucose Calcium Magnesium Total Bilirubin AST ALT Alkaline Phosphatase Ammonia Troponin I < 0.02 B-Natriuretic Peptide Total Protein Albumin Triglycerides Cholesterol Total LDL Cholesterol HDL Cholesterol Urine Color Urine Appearance Urine pH Ur Specific [place] Urine Protein Urine Glucose (UA) Urine Ketones Urine Blood Urine Nitrite Urine Bilirubin Urine Urobilinogen Ur Leukocyte Esterase Urine RBC Urine WBC HOSPITAL COURSE: Date of Admission:11/30/16 Date of Discharge: 01/01/17 Patient is an 81 year old female with a past medical history of rheumatoid arthritis, hyperlipidemia, CAD with stents, diabetes mellitus and hypertension who was brought in by her family on 11/30/2016 for altered mental status. Daughter reports that when she visited her mother at the rehab facility on Friday, she appeared at her baseline mentally. She states her mother was alert and oriented and in no acute distres. On the following day, she noted her mother to be barely communicating, more confused. Later at home, she noted her mother to be more confused, touching the stove as if she did not know what it was, was more restless, not eating, poor sleep. Her daughter is very concerned about her mother and is wondering if her mother was given too much pain medication at the rehab facility. On today's exam, patient is awake, alert, communicating without hesitancy. She is alert to self, year, place. In no acute distress. Much improved since yesterday. As per family, patient is back to her baseline. CT Scan:CT scan shows mild to moderate tori. and subcort. chronic microvascular ischemic changes. 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 MRI of brain: no acute infarct, mild to moderate periventicular and subcortoid chronic microvascular changes. Neurology: Alerted Mental Status - resolved, pt back to her baseline Assessment/Plan: Differentials include TIA vs. dementia, seizures or infectious process. She will get an EEG as an outpatient and follow up with a neurologist Blood cultures and urine cultures preliminary reading with no growth to date Ammonia levels normal On methotrexate every Friday for RA, Methotrexate adverse reactions include seizures, and opportunistic infections, daughter to follow up with Metal Wire Technician and discuss need for this medication Hold Narcotics, treat pain with OTC medication. Ortho: Left forearm fracture s/p fall at home - chronic Assessment/Plan: left forearm fracture for a month, hard cast, able to move left fingers freely, denies pain. Cast scheduled to be removed tomorrow. Encouraged daughter to keep appointment with Orthopedic in [place]. Cardiology: Chest Pain - resolved Assessment/Plan: Admitted with chest pain, denies any chest pain or shortness of breath. Troponin negative x 3, will follow up with meat counter worker as outpatient Hypertension - controlled/chronic condition Assessment/Plan: On home medications of HCTZ 12.5 daily, Toprol 25mg daily ( changed to Toprol 25mg BID secondary to HTN). Monitor BPs. Telemonitoring. Hold HCTZ secondary to dehydration until seen by PCP Hyperlipidemia - chonic Assessment/Plan: cont home lipitor PCP in [place], patient is moving to [place] to be closer to her daughter. Daughter asking for PCP referrals. Minutes to complete discharge: 45 Discharge Summary Reason For Visit: CHEST PAIN Current Active Problems Acute metabolic encephalopathy (Acute) Aphasia (Acute) Change in mental status (Acute) Chest pain (Acute) Confusion (Acute) Confusion associated with infection (Acute) Condition: Stable - Instructions Diet, Activity, Other Instructions: Please continue to hydrate with at least 6 - 8 glasses of water per day. Hold the HCTZ medication because of dehydration until you speak with your PCP. Please return to the ER if you experience any of the following: Confusion or any mental status changes. Please call Dr. Tabares's office, let them know you were seen at the hospital. You will need an EEG as an outpatient. Referrals: Alex Padilla MD [Staff Physician] - Genet Bailey MD [Staff Physician] - Jw Bazan MD [Staff Physician] - Karin Tabares MD [Staff Physician] - Disposition: HOME - Home Medications Comprehensive Discharge Medication List: Ambulatory Orders Adalimumab [Humira] 40 mg SQ ASDIR 11/29/16 Aspirin [ASA -] 81 mg PO DAILY 11/29/16 Atorvastatin Ca [Lipitor] 80 mg PO HS 11/29/16 Baclofen 10 mg PO DAILY 11/29/16 Bisacodyl [Dulcolax -] 5 mg PO BID 11/29/16 Clopidogrel Bisulfate [Plavix -] 75 mg PO DAILY 11/29/16 Cyanocobalamin [Vitamin B12 -] 1,000 mcg PO DAILY 11/29/16 Dextran 70/Hypromellose [Artificial Tears] 1 each OP DAILY 11/29/16 Docusate Sodium [Colace -] 200 mg PO DAILY 11/29/16 Folic Acid - 1 mg PO DAILY 11/29/16 Insulin Glargine,Hum.rec.anlog [Lantus Solostar PEN (NF)] 10 units SQ HS Insulin Lispro [Humalog] 100 unit SQ QID 11/29/16 Lidocaine 5% Patch [Lidoderm Patch -] 1 patch TP DAILY 11/29/16 Losartan/Hydrochlorothiazide [Losartan-Hctz 100-12.5 mg Tab] 1 tab PO DAILY Magnesium Hydrox 2400MG/30Ml [Milk of Magnesia -] 30 ml PO BID 11/29/16 Melatonin 3 mg PO HS 11/29/16 Methotrexate Sodium [Methotrexate] 17.5 mg PO WEEKLY 11/29/16 Metoprolol Succinate [Toprol Xl -] 25 mg PO DAILY 11/29/16 Oxycodone HCl 10 mg PO QID PRN 11/29/16 Pantoprazole Sodium [Protonix -] 40 mg PO DAILY 11/29/16 Polyethylene Glycol 3350 [Miralax (For Daily Use) -] 17 gm PO DAILY 11/29/16 Pregabalin [Lyrica -] 75 mg PO TID 11/29/16 Sennosides [Senna] 2 tab PO HS 11/29/16 Simethicone [Gas-X] 125 mg PO QID 11/29/16 This patient is new to me today: No Emergency Visit: Yes ED Registration Date: 11/30/16 Care time: The patient presented to the Emergency Department on the above date and was hospitalized for further evaluation of their emergent condition. Critical Care patient: No Total Critical Care Time (in minutes): 0 - Discharge Referral Referred to [facility] Med P.C.: Yes Physician Referral: Alex Branch MD ([facility])
[2016-12-01 15:39] VITALS: BP 134/60; PULSE 78; TEMP 98
--- NOTE | 2016-12-01 18:14 | CONSULT ---
Consult Consult Specialty:: Cardiology Referred by:: Hospitalist Reason for Consultation:: Cardiac evaluation - History of Present Illness Chief Complaint: Altered mental status History of Present Illness: Patient is an 81 year old female with underlying history of RA, CAD s/p PCI/ stent, type 2 DM, HTN and hypercholesterolemia who presented to [facility] with altered mental status. She had been living in assisted living facility went to rehab for back pain. SHe reported urinary frequency and chest discomfort radiation to left arm. She denies shortness of breath or palpitations. She has left forearm fracture for a month and currently has a cast. She is currently awake and alert. She denies paroxysmal nocturnal dyspnea or orthopnea. She denies fever or chills. She denies headache or lightheadedness. 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 Brain MRI was obtained. ) - History Source History Provided By: Patient, Family Member, Medical Record Limitations to Obtaining History: No Limitations - Past Medical History Cardio/Vascular: Yes: CAD, HTN, Hyperlipdemia Rheumatology: Yes: Rheumatoid Arthritis Endocrine: Yes: Diabetes Mellitus - Past Surgical History Additional Surgical History: Left forearm cast due to fracture - Alcohol/Substance Use Hx Alcohol Use: No History of Substance Use: reports: None - Smoking History Smoking history: Never smoked Home Medications - Allergies Allergies/Adverse Reactions: Allergies Allergy/AdvReac Type Severity Reaction Status Date / Time Penicillins Allergy Verified 11/29/16 21:04 - Home Medications Home Medications: Ambulatory Orders Adalimumab [Humira Pen] 40 mg SQ ASDIR 11/29/16 Aspirin [ASA -] 81 mg PO DAILY 11/29/16 Atorvastatin Ca [Lipitor] 80 mg PO HS 11/29/16 Baclofen 10 mg PO DAILY 11/29/16 Bisacodyl [Bisacodyl -] 5 mg PO BID 11/29/16 Clopidogrel Bisulfate [Plavix -] 75 mg PO DAILY 11/29/16 Cyanocobalamin [Vitamin B12 -] 1,000 mcg PO DAILY 11/29/16 Dextran 70/Hypromellose [Artificial Tears] 1 each OP DAILY 11/29/16 Docusate Sodium [Colace -] 200 mg PO DAILY 11/29/16 Folic Acid - 1 mg PO DAILY 11/29/16 Insulin Glargine,Hum.rec.anlog [Lantus Solostar PEN -] 10 units SQ HS 11/29/16 Insulin Lispro [Humalog Kwikpen U-100] 100 unit SQ QID 11/29/16 Lidocaine 5% Patch [Lidoderm -] 1 patch TP DAILY 11/29/16 Magnesium Hydrox 2400MG/30Ml [Milk of Magnesia -] 30 ml PO BID 11/29/16 Melatonin 3 mg PO HS 11/29/16 Metoprolol Succinate [Toprol XL -] 25 mg PO DAILY 11/29/16 Oxycodone HCl 10 mg PO QID PRN 11/29/16 Pantoprazole Sodium [Protonix -] 40 mg PO DAILY 11/29/16 Polyethylene Glycol 3350 [Miralax 119 gm Btl -] 17 gm PO DAILY 11/29/16 Pregabalin [Lyrica -] 75 mg PO TID 11/29/16 Sennosides [Senna] 2 tab PO HS 11/29/16 Simethicone [Gas-X] 125 mg PO QID 11/29/16 Losartan Potassium [Cozaar -] 100 mg PO DAILY tablet 12/01/16 Metoprolol Succinate [Toprol XL -] 25 mg PO BID #60 tab.sr.24h 12/01/16 Miscellaneous Medical Supply [Blood Pressure Cuff] 1 each MC BID #1 each NS 12/17 Review of Systems - Review of Systems Constitutional: denies: Chills, Fever Cardiovascular: denies: Chest Pain, Palpitations, Shortness of Breath Respiratory: denies: Cough, Hemoptysis, Orthopnea, PND Gastrointestinal: denies: Abdominal Pain, Constipation, Melena, Nausea, Rectal Bleeding, Vomiting Musculoskeletal: reports: Joint Pain Neurological: reports: Syncope. denies: Dizziness, Headache, Seizure Vital Signs: Vital Signs Temperature 98.0 F 12/01/16 15:36 Pulse Rate 78 12/01/16 15:36 Respiratory Rate 20 12/01/16 15:36 Blood Pressure 134/60 12/01/16 15:36 O2 Sat by Pulse Oximetry (%) 99 12/01/16 08:00 Neck: Yes: Supple Respiratory: Yes: Diminished Gastrointestinal: Yes: Normal Bowel Sounds, Soft. No: Tenderness Cardiovascular: Yes: Regular Rate and Rhythm JVD: No Carotid Bruit: No PMI: Non-Displaced Heart Sounds: Yes: S1, S2 Edema: No - Other Data Labs, Other Data: CBC, BMP 12/01/16 06:00 12/01/16 06:00 INR, PTT INR 1.02 (0.82-1.09) 11/29/16 20:21 Troponin, BNP 11/30/16 12/01/16 12/01/16 18:00 06:00 09:00 Troponin I < 0.02 < 0.02 B-Natriuretic Peptide 477.08 H Probable sinus rhythm Problem List - Problems (1) Acute metabolic encephalopathy Code(s): G93.41 - METABOLIC ENCEPHALOPATHY (2) Aphasia Code(s): R47.01 - APHASIA (3) Change in mental status Code(s): R41.82 - ALTERED MENTAL STATUS, UNSPECIFIED Qualifiers: Altered mental status type: unspecified Qualified Code(s): R41.82 - Altered mental status, unspecified (4) CAD (coronary artery disease) Code(s): I25.10 - ATHSCL HEART DISEASE OF [place] CORONARY ARTERY W/O ANG PCTRS Qualifiers: Coronary Disease-Associated Artery/Lesion type: [place] artery [place] vs. transplanted heart: [place] heart Associated angina: without angina Qualified Code(s): I25.10 - Atherosclerotic heart disease of [place] coronary artery without angina pectoris (5) Percutaneous transluminal coronary angioplasty (PTCA) within last 14 to 24 months Code(s): Z98.61 - CORONARY ANGIOPLASTY STATUS (6) Diabetes mellitus Code(s): E11.9 - TYPE 2 DIABETES MELLITUS WITHOUT COMPLICATIONS Qualifiers: Diabetes mellitus type: type 2 Diabetes mellitus complication status: without complication Diabetes mellitus long-term insulin use: without long-term use Qualified Code(s): E11.9 - Type 2 diabetes mellitus without complications (7) HTN (hypertension) Code(s): I10 - ESSENTIAL (PRIMARY) HYPERTENSION Qualifiers: Hypertension type: essential hypertension Qualified Code(s): I10 - Essential (primary) hypertension (8) Hypercholesterolemia Code(s): E78.0 - PURE HYPERCHOLESTEROLEMIA * DO NOT USE * Assessment/Plan 1. Altered mental status - ? stroke 2. HTN 3. Hypercholesterolemia 4. Type 2 DM 5. CAD s/p PCI/stent, angina pectoris 6. Rheumatoid Arthritis PLAN: 1. Continue Metoprolol, Cozaar and HCTZ 2. Continue ASA and Plavix 3. Continue Lipitor 4. Transthoracic Echocardiography to assess LV and valvular function - can be done as outpatient Sang H. Karen MD
== END 2016-12-01 18:45 | disposition home or self-care (01) ==
LOC: JER 19:50 → JERBED 11-30 02:05 → UNDOADMOB 11-30 02:05 → JERBED 11-30 03:25 → J4W 11-30 05:07
PROVIDERS: ADMIT Internal Medicine; ATTEND Nurse Practitioner Family
DX: G93.41 Metabolic encephalopathy (principal); R41.82 Altered mental status, unspecified; M06.9 Rheumatoid arthritis, unspecified; E78.5 Hyperlipidemia, unspecified; R07.89 Other chest pain; I25.10 Atherosclerotic heart disease of native coronary artery without angina pectoris; E11.9 Type 2 diabetes mellitus without complications; I10 Essential (primary) hypertension; Z79.4 Long term (current) use of insulin; N17.9 Acute kidney failure, unspecified; G89.29 Other chronic pain; R47.01 Aphasia; E86.0 Dehydration; Z98.61 Coronary angioplasty status
CPT/HCPCS: 36415; 70450-TC; 70551-TC; 71010-TC; 80048; 80053; 80061; 81003; 81015; 82140; 82550; 83721; 83735; 83880; 84484; 85025; 85610; 87040; 87086; 93005; 93010; 99283-25; G0378; J1644